=== PATIENT | male | born 1975 | race Caucasian/White ===

== ENCOUNTER 2017-07-24 20:56 | Emergency (ER) | payer OTHER ==
[~2017-07-24] VITALS: Ht 170.2 cm; Wt 79.4 kg
[~2017-07-24 20:56] MED LIST: ZYRTEC10 M3 PO
== END 2017-07-25 11:29 | disposition home or self-care (01) ==
LOC: ER 20:56
DX: R10.33 Periumbilical pain (principal); K52.89 Other specified noninfective gastroenteritis and colitis; E86.0 Dehydration

== ENCOUNTER 2018-05-27 18:33 | Emergency (ER) | payer OTHER ==
[~2018-05-27] VITALS: Ht 170.2 cm; Wt 77.1 kg
[2018-05-27] MEDS ORDERED: ZOFRAN ODT4 MG SL (23:10)
[2018-05-27] MEDS ORDERED: PEPCID AC20 MG PO (23:10)
[2018-05-27] MEDS ORDERED: TESSALON PERLE100 M1 PO (23:10)
[2018-05-27] MEDS ORDERED: KETO10TA2 PO (23:10)
[2018-05-27] MEDS ORDERED: OSEL75CA PO (23:10)
[2018-05-27] MEDS ORDERED: AIRBORNE EFFER1 EACH PO (23:10)
== END 2018-05-27 23:29 | disposition home or self-care (01) ==
LOC: ER 18:33
DX: J09.X2 Influenza due to identified novel influenza A virus with other respiratory manifestations (principal)

== ENCOUNTER 2020-07-06 15:43 | Emergency (ER) | payer OTHER ==
[~2020-07-06] VITALS: Ht 170.2 cm; Wt 79.4 kg
[~2020-07-06 15:43] MED LIST changes: +AIRBORNE EFFER1 EACH PO; +KETO10TA2 PO; +OSEL75CA PO; +PEPCID AC20 MG PO; +TESSALON PERLE100 M1 PO; +ZOFRAN ODT4 MG SL
== END 2020-07-06 20:55 | disposition home or self-care (01) ==
LOC: ER 15:43
DX: M79.645 Pain in left finger(s) (principal)

== ENCOUNTER 2024-12-04 10:45 | Day surgery (SDC) | payer OTHER ==
[2024-11-28 12:48] LABS: BASO % 0.8 % (0.1-1.2); EOS # 0.08 (0.04-0.54); EOS % 1.3 % (0.7-7.0); LYMPH # 1.59 (1.18-3.74); LYMPH % 25.6 % (19.3-53.1); MEAN PLATELET VOLUME 9.90 fl (9.4-12.4); MONO # 0.35 (0.24-0.82); MONO % 5.6 % (4.7-12.5); NEUT # 4.11 (1.56-6.13); NEUT % 66.4 % (34.0-71.1); RED CELL DISTRIBUTION WIDTH 12.0 % (11.6-14.4)
[2024-11-28 12:53] LABS: URINE APPEARANCE Clear; URINE BILIRRUBIN Negative (NEGATIVE); URINE BLOOD Negative; URINE COLOR Yellow; URINE GLUCOSE Negative (NEGATIVE); URINE KETONE Negative (NEGATIVE); URINE LEUKOCYTE Negative; URINE NITRATE Negative; URINE PROTEIN Negative (NEGATIVE); URINE UROBILINOGEN 0.2 E.U./dl
[2024-11-28 12:54] LABS: URINE BACTERIA 5.9 uL (0.0-1933)
[2024-11-28 13:01] VITALS: BP 153/90
[2024-11-28 13:22] LABS: INR < 0.93
[2024-11-28 13:32] LABS: URINE CAST 0.00 uL (0.0-1.40); URINE EPITHELIAL CELLS 0.7 uL (0.0-38.8); URINE RBC 0.8 uL (0.0-20.8); URINE WBC 0.9 uL (0.0-23.2)
[2024-11-28 14:31] LABS: ALT/SGPT 45.0 U/L (12-78); AST/SGOT 32.0 U/L (15-37); BILIRUBIN TOTAL 0.65 mg/dL (0.3-1.2); BUN CREA RATIO 12.0 (7.0-25.0); CREATININE SERUM 1.04 mg/dL (0.70-1.30); GFR 75.29; GLOBULINA 3.1 G/DL (2.4-3.5); GLUCOSE FASTING 85.0 mg/dL (65-100); OSMOLALITY SERUM 280.0 MOSM/KG (275-295)
[~2024-12-04] VITALS: Ht 170.2 cm; Wt 77.1 kg
[~2024-12-04 10:45] MED LIST changes: +FOLIC ACID0.8 M1 PO; +GRALISE600 MG PO; +MELOXICAM15 MG PO; +ROSUVASTATIN CA10 MG PO; +SYMTUZA 800-151 EACH PO
[2024-12-04] MEDS ORDERED: CEFAZOLIN SODIUM 1,000 MG VIAL IV ONE (16:00)
[2024-12-04] MEDS ORDERED: SUGAMMADEX SODIUM 200 MG/2 ML VIAL IV ONE (16:26)
[2024-12-04] MEDS ORDERED: FAMOTIDINE/PF 20 MG/2 ML VIAL ONE (17:27)
[2024-12-04] MEDS ORDERED: FAMOTIDINE/PF 20 MG/2 ML VIAL IV SCH (17:30)
[2024-12-04] MEDS ORDERED: CEFAZOLIN SODIUM 1,000 MG VIAL IV SCH (17:30)
[2024-12-04 23:03] VITALS: BP 131/79; O2SAT 100
== END 2024-12-04 23:05 | disposition home or self-care (01) ==
LOC: CIR.AMB 10:45 → O/R 10:45 → SURG 10:45 → EDSTATUS 13:45 → SURG 13:45 → CIR.AMB 23:05
PROVIDERS: ATTEND Specialist
DX: K40.90 Unilateral inguinal hernia, without obstruction or gangrene, not specified as recurrent (principal)